=== PATIENT | male | born 1955 | race African-American/Black ===

== ENCOUNTER 2017-07-24 12:44 | Emergency (ER) | payer OTHER, MEDICAID ==
[~2017-07-24] VITALS: Ht 162.6 cm; Wt 59.0 kg
[2017-07-24 15:09] VITALS: BP 123/63
[2017-07-24] MEDS ORDERED: TETANUS-DIPTH-ACEL PERTUSSIS 0.5ML SYRG IM ONE (15:30)
== END 2017-07-24 15:53 | disposition home or self-care (01) ==
LOC: ER 12:44
DX: S01.411A Laceration without foreign body of right cheek and temporomandibular area, initial encounter (principal); Y08.89XA Assault by other specified means, initial encounter; Y93.89 Activity, other specified; Y99.8 Other external cause status; Y92.89 Other specified places as the place of occurrence of the external cause
CPT/HCPCS: 12011; 90471; 90715

== ENCOUNTER 2017-07-31 15:00 | Emergency (ER) | payer OTHER, MEDICAID ==
[~2017-07-31] VITALS: Ht 162.6 cm; Wt 56.7 kg
[2017-07-31 19:06] VITALS: BP 100/64
== END 2017-07-31 19:05 | disposition home or self-care (01) ==
LOC: ER 15:00
DX: S01.411D Laceration without foreign body of right cheek and temporomandibular area, subsequent encounter (principal); Z48.02 Encounter for removal of sutures

== ENCOUNTER 2021-02-26 12:37 | Emergency (ER) | payer MEDICARE, MEDICAID ==
[~2021-02-26] VITALS: Ht 162.6 cm; Wt 59.0 kg
[2021-02-26 12:47] VITALS: BP 131/86
== END 2021-02-26 14:53 | disposition home or self-care (01) ==
LOC: ER 12:37
DX: S39.012A Strain of muscle, fascia and tendon of lower back, initial encounter (principal); S16.1XXA Strain of muscle, fascia and tendon at neck level, initial encounter; V43.52XA Car driver injured in collision with other type car in traffic accident, initial encounter; Y93.89 Activity, other specified; Y92.488 Other paved roadways as the place of occurrence of the external cause; Y99.8 Other external cause status
CPT/HCPCS: 72040; 72100

== ENCOUNTER 2025-11-04 08:27 | Inpatient (IN) | payer OTHER, MEDICAID ==
[~2025-11-04] VITALS: Ht 157.5 cm; Wt 58.4 kg
--- NOTE | 2025-11-04 09:19 | ED.PDOC ---
General HPI Comments A 70 YEAR OLD MALE PRESENTS TO THE ED WITH COMPLAINT OF FLANK PAIN. PATIENT REPORTS THAT HE HAS BEEN EXPERIENCING LEFT SIDED FLANK PAIN WITH ASSOCIATED HEMATURIA AND DYSURIA SINCE THIS MORNING. PATIENT RELAYS THAT HE HAS ALSO BEEN EXPERIENCING WORSENING CHRONIC BACK PAIN, REQUESTING NORCO. PATIENT DENIES FEVER, CHILLS, SHORTNESS OF BREATH, CHEST PAIN, ABDOMINAL PAIN, NAUSEA, VOMITING, HEADACHE, OR OTHER COMPLAINTS. NO OTHER SYMPTOMS OR MODIFYING FACTORS AT THIS TIME. PATIENT IS ALERT, ORIENTED X 4, AND HAS STEADY GAIT. Chief Complaint: Flank Pain Time Seen by MD: 09:17 Primary Care Provider: PARESH Thomas notes: Nurses Notes, Medications, Allergies Allergies: Coded Allergies: NO KNOWN ALLERGIES (Unverified , 07/24/17) Information Source: Patient Mode of Arrival: EMS Severity: Moderate Inability to void: None Timing: Hours Duration: Since onset Prehospital treatment: None Onset: Spontaneous Symptoms: Dysuria, Hematuria History of: None Location: (L)Flank associated signs and symptoms: Flank Pain, Back Pain, Dysuria, Hematuria Past Medical History Past Medical History (Other): CHRONIC BACK PAIN Surgical History: Denies all surgeries Family History Family History: Reviewed,noncontributory to illness Social History Smoker: Non-Smoker, Less Than 1 Pack/Day Alcohol: Denies ETOH Use, Occasionally Drugs: Denies Drug Use Lives In: Home Constitutional: denies: chills, diaphoresis, fatigue, fever, malaise, sweats, weakness, others EENTM: denies: blurred vision, double vision, ear bleeding, ear discharge, ear drainage, ear pain, ear ringing, eye pain, eye redness, hearing loss, mouth pain, mouth swelling, nasal discharge, nose bleeding, nose congestion, nose pain, photophobia, tearing, throat pain, throat swelling, voice changes, others Respiratory: denies: cough, hemoptysis, orthopnea, SOB at rest, shortness of breath, SOB with excertion, stridor, wheezing, others Cardiovascular: denies: chest pain, dizzy spells, diaphoresis, Dyspnea on exert ion, edema, irregular heart beat, left arm pain, lightheadedness, palpitations, PND, syncope, others Gastrointestinal: denies: abdomen distended, abdominal pain, blood streaked bowels, constipated, diarrhea, dysphagia, difficulty swallowing, hematemesis, melena, nausea, poor appetite, poor fluid intake, rectal bleeding, rectal pain, vomiting, others Genitourinary: reports: dysuria, flank pain, hematuria; denies: burning, frequency, incontinence, penile discharge, penile sore, pain, testicle pain, testicle swelling, urgency, others Neurological: denies: dizziness, fainting, headache, left sided numbness, left sided weakness, numbness, paresthesia, pre-existing deficit, right sided numbness, right sided weakness, seizure, speech problems, tingling, tremors, w eakness, others Musculoskeletal: reports: back pain, muscle pain; denies: gout, joint pain, joint swelling, muscle stiffness, neck pain, others Integumetry: denies: bruises, change in color, change in hair/nails, dryness, laceration, lesions, lumps, rash, wounds, others Allergic/Immunocompromised: denies: Difficulty Healing, Frequent Infections, Hives, Itching, others Hematologic/Lymphatic: denies: anemia, blood clots, easy bleeding, easy bruising, swollen glands, others Endocrine: denies: excessive hunger, excessive sweating, excessive thirst, excessive urination, flushing, intolerance to cold, intolerance to heat, unexplained weight gain, unexplained weight loss, others Psychiatric: denies: anxiety, bipolar disorder, depression, hopeless, panic disorder, schizophrenia, sleepless, suicidal, others All Other Systems: Reviewed and Negative Physical Exam General Appearance: No Apparent Distress, Normal HEENT: Normal ENT Inspection, PERRL/EOMI Neck: Full Range of Motion, Non-Tender, Normal, Normal Inspection Respiratory: Chest Non-Tender, Lungs Clear, No Accessory Muscle Use, No Respiratory Distress, Normal Breath Sounds Cardiovascular: No Edema, No JVD, No Murmur, No Gallop, Normal Peripheral Pulses, Regular Rate/Rhythm Breast Exam: Deferred Gastrointestinal: No Organomegaly, No Pulsatile Mass, Normal Bowel Sounds, Soft, Tenderness (LEFT FLANK, NO CVA TENDERNESS. ) Genitalia: Deferred Pelvic: Deferred Rectal: Deferred Extremities: No calf tenderness, Normal capillary refill, Normal inspection, Normal range of motion, Non-tender, No pedal edema Musculoskeletal : Location: Bilateral Extremity Location: Back Apperance: Tenderness: Moderate (TENDERNESS AND MUSCLE SPASM ON LOWER BACK, NO BONY TENDERNESS, SWELLING AND DEFORMITY. ) Neurologic: Alert, computer meteorologist II-XII nml as Tested, No Motor Deficits, Normal Affect, Normal Mood, No Sensory Deficits Cerebellar Function: Normal Reflexes: Normal Skin: Dry, Normal Color, Warm Peripheral Pulses: 2+ carotid (R), 2+ carotid (L) Lymphatic: No Adenopathy Was a procedure done? Was a procedure done?: No Differential Diagnosis Kidney stone (Female): N/A Kidney stone (Male): Pyelonephritis, Urolithiasis, Urinary tract infection Urinary Problem (Male): Urolithiasis, UTI X-Ray, Labs, Meds, VS Vital Signs Date Time Temp Pulse Resp B/P (MAP) Pulse Ox O2 Delivery O2 Flow Rate FiO2 11/04/25 10:51 87 15 97/60 (72) 95 11/04/25 08:32 98.6 92 16 114/73 96 98.6 Lab Test 11/04/25 09:41 11/04/25 09:35 Range/Units Urine Color Light-orange Yellow Urine Clarity Turbid H Clear Urine pH 8.0 5.0-9.0 Urine Specific [place] 1.019 1.001-1.035 Urine Protein Trace H Negative Urine Ketones Negative Negative Urine Blood 2+ H Negative /uL Urine Nitrite 2+ H Negative Urine Bilirubin Negative Negative Urine Urobilinogen 2 H Negative mg/dL Urine Leukocyte Esterase 3+ Negative /uL Urine RBC 78 0 - 3 /hpf Urine Microscopic WBC 112 H 0-3 /HPF Urine Squamous Epithelial Cells Few <5 /hpf Urine Bacteria Few H None Seen /hpf Urine Mucus Few None Seen Urine Glucose Normal Normal mg/dL White Blood Count 22.4 H 4.4-10.8 10^3/uL Red Blood Count 3.95 L 4.5-5.90 10^6/uL Hemoglobin 12.7 L 13.5-17.5 g/dL Hematocrit 38.4 L 41.0-53.0 % Mean Corpuscular Volume 97.3 80.0-100.0 fL Mean Corpuscular Hemoglobin 32.1 H 28.0-32.0 pg Mean Corpuscular Hemoglobin Concent 33.0 32.0-36.0 g/dL Red Cell Distribution Width 13.2 11.8-14.3 % Platelet Count 255 140-450 10^3/uL Mean Platelet Volume 7.8 6.9-10.8 fL Neutrophils (%) (Auto) 90.0 H 37.0-80.0 % Lymphocytes (%) (Auto) 2.0 L 10.0-50.0 % Monocytes (%) (Auto) 7.7 0.0-12.0 % Eosinophils (%) (Auto) 0.1 0.0-7.0 % Basophils (%) (Auto) 0.2 0.0-2.0 % Neutrophils # (Auto) 20.1 H 1.6-8.6 10 ^3/uL Lymphocytes # (Auto) 0.5 0.4-5.4 10 ^3/uL Monocytes # (Auto) 1.7 H 0-1.3 10 ^3/uL Eosinophils # (Auto) 0 0-0.8 10 ^3/uL Basophils # (Auto) 0.1 0-0.2 10 ^3/uL Nucleated Red Blood Cells 0.0 % Sodium Level 136 136-145 mmol/L Potassium Level 4.0 3.5-5.1 mmol/L Chloride Level 101 98-107 mmol/L Carbon Dioxide Level 26 20-31 mmol/L Anion Gap 9 5-15 Blood Urea Nitrogen 15 9-23 mg/dL Creatinine 1.43 H 0.700-1.30 mg/dL Glomerular Filtration Rate Calc 53 >90 mL/min BUN/Creatinine Ratio 10.5 10.0-20.0 Serum Glucose 94 74-106 mg/dL Calcium Level 8.5 L 8.7-10.4 mg/dL Current Medications Medications (Trade) Dose Ordered Sig/Kamila Route Start Time Stop Time Status Last Admin Acetaminophen/ Hydrocodone Bitart ([place] 10/325MG Tab) 1 tab ONCE ONCE PO 11/04/25 09:30 11/04/25 09:31 CA 11/04/25 09:40 Sodium Chloride 1,000 ml @ 1,000 mls/hr Q1H ONCE IV 11/04/25 10:30 11/04/25 11:29 DC 11/04/25 10:50 Ceftriaxone Sodium 50 ml @ 100 mls/hr ONCE ONCE IV 11/04/25 10:30 11/04/25 10:59 CA 11/04/25 11:08 Tamsulosin HCl (Flomax) 0.8 mg ONCE ONCE PO 11/04/25 11:00 11/04/25 11:01 CA 11/04/25 11:02 [facility] [id number] [facility] [address] Ph: [phone] DIAGNOSTIC IMAGING Diagnostic Imaging Report : [id number] Signed PATIENT: BEVERLEY YODER ACCT: [id number] UNIT: [id number] : 1955 LOC: ER ROOM / BED: / AGE / SEX: 70 / M ADM STATUS: REG ER SERVICE 9 ORDERING PHYSICIAN: CECILIA RILEY PROCEDURE(s): ABPL - CT AB PEL WO CON-NO ORAL OR IV REASON: LOW Back with hematoma ORDER NUMBER(s): [id number], ACCESSION NUMBER(s): [id number] EXAM: CT CT AB PEL WO CON-NO ORAL OR IV HISTORY: LOW Back with hematoma Comparison Study: None Exam Date: 11/04/2025 09:26 AM Radiation Dose Information: CT Dose: CTDI volume is 5.07 mGy. Dose-length product is 259.72 mGy*cm TECHNIQUE: Multidetector CT of the abdomen and pelvis was performed. Imaging was performed without IV contrast. Axial, coronal and sagittal multiplanar reformats were obtained from the axial data set by the technologist. FINDINGS: Lack of intravenous contrast compromises evaluation of perfusion and for isodense lesions. Lower chest: Clear. Old right rib fractures. Liver: Unremarkable Biliary system: Unremarkable Spleen: Unremarkable Pancreas: Unremarkable. Adrenals: Unremarkable. Kidneys and ureters: No hydronephrosis. No renal or ureteral calculi. Bowel: No obstruction. Mild distal esophageal wall thickening. Bladder: Diffuse bladder wall thickening. Multiple calculi within the bladder measuring up to 12 mm. Reproductive organs: No abnormal mass. Lymph nodes: Unremarkable. Peritoneum: Unremarkable Vessels: Patency not evaluated on this noncontrast study. Bones and soft tissue: No aggressive osseous lesion. Multilevel degenerative changes of the lumbar spine. IMPRESSION: Motion degraded study. Diffuse bladder wall thickening. Correlate for cystitis. Multiple calculi within the bladder measuring up to 12 mm. Mild esophageal wall thickening could be related to distal esophagitis. Consider outpatient endoscopy if there is concern for underlying mass ATED BY: ROGERS HINTON MD DICTATED DATE/TIME: 11/04/25956 SIGNED BY: ROGERS HINTON MD SIGNED DATE/TIME: 11/04/25956 CC: X-Ray, Labs, Meds, VS Comment EXTERNAL MEDICAL RECORDS REVIEWED: [NONE] INDEPENDENT HISTORIANS: [NONE] SOCIAL DETERMINANTS OF HEALTH: [NONE] LABS ORDERED: CBC, BMP, UA REVIEWED AND INTERPRETED RESULTS: CT ABD/PEL IMAGING ORDERED: CT ABD/PEL TREATMENTS ORDERED: NORCO 10/325MG PO, ROCEPHIN 1GM IVP, FLOMAX 0.8MG PO AND N/S 1LITER IVP PROCEDURES PERFORMED: NONE CRITICAL CARE TIME: NONE I HAVE DISCUSSED THE PATIENT WITH THE ATTENDING PHYSICIAN DR. LARA AND HE AGREES WITH THE PATIENT'S PLAN OF CARE AND DISPOSITION. BASED ON HISTORY OF PRESENT ILLNESS, AND PHYSICAL EXAM, PATIENT WILL BE ADMITTED TO THE HOSPITAL FOR FURTHER IN-PATIENT EVALUATION AND TREATMENT. 1155: DISCUSSED PATIENT CASE WITH DR. ROSADO AND HE AGREES TO ADMIT THE PATIENT TO THE HOSPITAL AT THIS TIME. Time of 1ST Reevaluation: 10:16 Reevaluation 1ST: Unchanged Patient Education/Counseling: Diagnosis, Treatment Family Education/Counseling: Diagnosis, Treatment, No Family Present SEPSIS Sepsis Screen Date sepsis recognized/suspect: Nov 04, 2025 Time Sepsis recognized/suspect: 08 Recent Procedure: No On Antibiotic Therapy: No Respiratory Rate >20: No Heart Rate >90: Yes Temp<36 C (96.8 F) or >38.3 C: No SBP <90 or MAP <65 mmHG: No New Acute Mental Status Change: No Is the patient on CPAP, BIPAP,: No Physician Orders Ct Ab Pel Wo Con-No Oral Or Iv (11/04/25 09:20) Heplock Iv (11/04/25 ) Urine Bacterial Culture (11/04/25 10:19) Admit (11/04/25 12:35) Code Status (11/04/25 12:35) 2 Gm Sodium Diet (11/04/25 Lunch) Sodium Chloride 0.9% (11/04/25 12:45) Hydrocodone-Acet 5/325mg Tab ([place] 5/32 (11/04/25 12:45) Ondansetron Hcl (Zofran) (11/04/25 12:45) Docusate Sodium Capsule (Colace Capsule) (11/04/25 12:45) Fall Risk Precautions In Place QSHIFT (11/04/25 12:35) Complete Blood Count (11/05/25 04:00) Comprehensive Metabolic Panel (11/05/25 04:00) Condition: Fair (11/04/25 12:35) Enoxaparin Sodium (Lovenox) (11/05/25 10:00) Acetaminophen Tablet (Tylenol Tablet) (11/04/25 12:45) Morphine Sulfate Injection (11/04/25 12:45) Ceftriaxone 1gm/50ml (Rocephin) (11/05/25 09:00) * Urology Consult (11/04/25 12:38) Vital Signs Date Time Temp Pulse Resp B/P (MAP) Pulse Ox O2 Delivery O2 Flow Rate FiO2 11/04/25 10:51 87 15 97/60 (72) 95 11/04/25 08:32 98.6 92 16 114/73 96 98.6 Laboratory Tests Test 11/04/25 09:35 White Blood Count 22.4 10^3/uL (4.4-10.8) H Medications Medications Dose Ordered Sig/Kamila Route Start Time Stop Time Status Last Admin Dose Admin Acetaminophen/ Hydrocodone Bitart 1 tab ONCE ONCE PO 11/04/25 09:30 11/04/25 09:31 DC 11/04/25 09:40 Ceftriaxone Sodium 50 ml @ 100 mls/hr ONCE ONCE IV 11/04/25 10:30 11/04/25 10:59 DC 11/04/25 11:08 Sodium Chloride 1,000 ml @ 1,000 mls/hr Q1H ONCE IV 11/04/25 10:30 11/04/25 11:29 DC 11/04/25 10:50 Tamsulosin HCl 0.8 mg ONCE ONCE PO 11/04/25 11:00 11/04/25 11:01 DC 11/04/25 11:02 Departure 1 Departure Time of Disposition: 10:20 Impression: Primary Impression: Bladder stone Additional Impressions: UTI (urinary tract infection) Qualified Codes: N39.0 - Urinary tract infection, site not specified; R31.9 - Hematuria, unspecified Hematuria Qualified Codes: R31.9 - Hematuria, unspecified Disposition: 09 ADMITTED INPATIENT Condition: Serious Critical Care Note Critical Care Time?: No Stability Stability form required: No Heart Score Heart Score: Heart Score Response (Comments) Value History N/A 0 EKG N/A 0 Age N/A 0 Risk Factors N/A 0 Troponin N/A 0 Total 0 I personally scribed for CECILIA RILEY ([email or web address]) on 11/04/25 at 09:19. Electronically submitted by Chay Roman ([email or web address]). I personally scribed for CECILIA RILEY ([email or web address]) on 11/04/25 at 10:07. Electronically submitted by Chay Roman ([email or web address]). I personally scribed for CECILIA RILEY ([email or web address]) on 11/04/25 at 10:21. Electronically submitted by Chay Roman ([email or web address]). I personally scribed for CECILIA RILEY ([email or web address]) on 11/04/25 at 11:58. Electronically submitted by Chay Roman ([email or web address]). CECILIA RILEY Nov 04, 2025 09:19
[2025-11-04] MEDS: HYDROcodone-ACET 10/325MG TAB PO ONE (09:40)
--- NOTE | 2025-11-04 09:59 | DVH ---
EXAM: CT CT AB PEL WO CON-NO ORAL OR IV HISTORY: LOW Back with hematoma Comparison Study: None Exam Date: 11/04/2025 09:26 AM Radiation Dose Information: CT Dose: CTDI volume is 5.07 mGy. Dose-length product is 259.72 mGy*cm TECHNIQUE: Multidetector CT of the abdomen and pelvis was performed. Imaging was performed without IV contrast. Axial, coronal and sagittal multiplanar reformats were obtained from the axial data set by the technologist. FINDINGS: Lack of intravenous contrast compromises evaluation of perfusion and for isodense lesions. Lower chest: Clear. Old right rib fractures. Liver: Unremarkable Biliary system: Unremarkable Spleen: Unremarkable Pancreas: Unremarkable. Adrenals: Unremarkable. Kidneys and ureters: No hydronephrosis. No renal or ureteral calculi. Bowel: No obstruction. Mild distal esophageal wall thickening. Bladder: Diffuse bladder wall thickening. Multiple calculi within the bladder measuring up to 12 mm. Reproductive organs: No abnormal mass. Lymph nodes: Unremarkable. Peritoneum: Unremarkable Vessels: Patency not evaluated on this noncontrast study. Bones and soft tissue: No aggressive osseous lesion. Multilevel degenerative changes of the lumbar spine. IMPRESSION: Motion degraded study. Diffuse bladder wall thickening. Correlate for cystitis. Multiple calculi within the bladder measuring up to 12 mm. Mild esophageal wall thickening could be related to distal esophagitis. Consider outpatient endoscopy if there is concern for underlying mass
[2025-11-04 10:02] LABS: Urine Protein, UAD TRACE (Negative)
[2025-11-04 10:08] LABS: Hematocrit 38.4 % (41.0-53.0); Hemoglobin 12.7 g/dL (13.5-17.5); Mean Corpuscular Hemoglobin 32.1 pg (28.0-32.0); Mean Corpuscular Volume 97.3 fL (80.0-100.0); Nucleated Red Blood Cells % 0.0 %
[2025-11-04 10:22] LABS: Anion Gap 9 (5-15); Carbon Dioxide 26 mmol/L (20-31); Chloride 101 mmol/L (98-107); Potassium 4.0 mmol/L (3.5-5.1); Sodium 136 mmol/L (136-145)
[2025-11-04 10:24] LABS: Calcium 8.5 mg/dL (8.7-10.4)
[2025-11-04 10:28] LABS: BUN/Creatinine Ratio 10.5 (10.0-20.0); Blood Urea Nitrogen 15 mg/dL (9-23); Glucose 94 mg/dL (74-106)
[2025-11-04] MEDS: SODIUM CHLORIDE 0.9% 1,000 ML IV ONE (10:50)
[2025-11-04] MEDS: TAMSULOSIN HYDROCHLORIDE 0.4 MG CAP PO ONE (11:02)
[2025-11-04] MEDS ORDERED: ONDANSETRON HCL 4 MG/2 ML VIAL IV PRN (12:45)
[2025-11-04] MEDS ORDERED: ACETAMINOPHEN 325 MG TAB PO PRN (12:45)
[2025-11-04] MEDS ORDERED: DOCUSATE SOD 100 MG CAP PO PRN (12:45)
[2025-11-04 13:21] VITALS: PULSE 81; RESP 20; O2SAT 96
[2025-11-04] MEDS: HYDROcodone-ACET 5/325MG TAB PO PRN (13:42)
--- NOTE | 2025-11-04 13:54 | DVHHP2 ---
History of Present Illness Reason for Visit: Blood in the urine and left flank pain History of Present Illness 70-year-old male with a known history of chronic back pain currently on narcotics presented to the hospital with a left flank pain and gross blood in the urine found to have urinary bladder stone. Patient denies any fevers chills but does complaining of dysuria hematuria. CT abdomen and pelvis was done which shows evidence of urinary bladder stone and urinary bladder wall thickening as well as esophageal wall thickening. Musculoskeletal: Chronic low back pain Renal/: Acute renal failure, Hematuria Past Surgical History: None Family History: None Smoke: No ALCOHOL: none Review of Systems Review of Systems Twelve review of system are negative besides mentioned above. 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 Labs/Xrays Labs Test 11/04/25 09:41 11/04/25 09:35 Range/Units Urine Color Light-orange Yellow Urine Clarity Turbid H Clear Urine pH 8.0 5.0-9.0 Urine Specific [place] 1.019 1.001-1.035 Urine Protein Trace H Negative Urine Ketones Negative Negative Urine Blood 2+ H Negative /uL Urine Nitrite 2+ H Negative Urine Bilirubin Negative Negative Urine Urobilinogen 2 H Negative mg/dL Urine Leukocyte Esterase 3+ Negative /uL Urine RBC 78 0 - 3 /hpf Urine Microscopic WBC 112 H 0-3 /HPF Urine Squamous Epithelial Cells Few <5 /hpf Urine Bacteria Few H None Seen /hpf Urine Mucus Few None Seen Urine Glucose Normal Normal mg/dL White Blood Count 22.4 H 4.4-10.8 10^3/uL Red Blood Count 3.95 L 4.5-5.90 10^6/uL Hemoglobin 12.7 L 13.5-17.5 g/dL Hematocrit 38.4 L 41.0-53.0 % Mean Corpuscular Volume 97.3 80.0-100.0 fL Mean Corpuscular Hemoglobin 32.1 H 28.0-32.0 pg Mean Corpuscular Hemoglobin Concent 33.0 32.0-36.0 g/dL Red Cell Distribution Width 13.2 11.8-14.3 % Platelet Count 255 140-450 10^3/uL Mean Platelet Volume 7.8 6.9-10.8 fL Neutrophils (%) (Auto) 90.0 H 37.0-80.0 % Lymphocytes (%) (Auto) 2.0 L 10.0-50.0 % Monocytes (%) (Auto) 7.7 0.0-12.0 % Eosinophils (%) (Auto) 0.1 0.0-7.0 % Basophils (%) (Auto) 0.2 0.0-2.0 % Neutrophils # (Auto) 20.1 H 1.6-8.6 10 ^3/uL Lymphocytes # (Auto) 0.5 0.4-5.4 10 ^3/uL Monocytes # (Auto) 1.7 H 0-1.3 10 ^3/uL Eosinophils # (Auto) 0 0-0.8 10 ^3/uL Basophils # (Auto) 0.1 0-0.2 10 ^3/uL Nucleated Red Blood Cells 0.0 % Sodium Level 136 136-145 mmol/L Potassium Level 4.0 3.5-5.1 mmol/L Chloride Level 101 98-107 mmol/L Carbon Dioxide Level 26 20-31 mmol/L Anion Gap 9 5-15 Blood Urea Nitrogen 15 9-23 mg/dL Creatinine 1.43 H 0.700-1.30 mg/dL Glomerular Filtration Rate Calc 53 >90 mL/min BUN/Creatinine Ratio 10.5 10.0-20.0 Serum Glucose 94 74-106 mg/dL Calcium Level 8.5 L 8.7-10.4 mg/dL SEPSIS Sepsis Screen Date sepsis recognized/suspect: Nov 04, 2025 Time Sepsis recognized/suspect: 0832 Recent Procedure: No On Antibiotic Therapy: No Respiratory Rate >20: No Heart Rate >90: Yes Temp<36 C (96.8 F) or >38.3 C: No SBP <90 or MAP <65 mmHG: No New Acute Mental Status Change: No Is the patient on CPAP, BIPAP,: No Physician Orders Ct Ab Pel Wo Con-No Oral Or Iv (11/04/25 09:20) Heplock Iv (11/04/25 ) Urine Bacterial Culture (11/04/25 10:19) Admit (11/04/25 12:35) Code Status (11/04/25 12:35) 2 Gm Sodium Diet (11/04/25 Lunch) Sodium Chloride 0.9% (11/04/25 12:45) Hydrocodone-Acet 5/325mg Tab ([place] 5/32 (11/04/25 12:45) Ondansetron Hcl (Zofran) (11/04/25 12:45) Docusate Sodium Capsule (Colace Capsule) (11/04/25 12:45) Fall Risk Precautions In Place QSHIFT (11/04/25 12:35) Complete Blood Count (11/05/25 04:00) Comprehensive Metabolic Panel (11/05/25 04:00) Condition: Fair (11/04/25 12:35) Enoxaparin Sodium (Lovenox) (11/05/25 10:00) Acetaminophen Tablet (Tylenol Tablet) (11/04/25 12:45) Ceftriaxone 1gm/50ml (Rocephin) (11/05/25 09:00) * Urology Consult (11/04/25 12:38) Morphine Sulfate Injection (11/04/25 13:30) Vital Signs Date Time Temp Pulse Resp B/P (MAP) Pulse Ox O2 Delivery O2 Flow Rate FiO2 11/04/25 10:51 87 15 97/60 (72) 95 11/04/25 08:32 98.6 92 16 114/73 96 98.6 Laboratory Tests Test 11/04/25 09:35 White Blood Count 22.4 10^3/uL (4.4-10.8) H Medications Medications Dose Ordered Sig/Kamila Route Start Time Stop Time Status Last Admin Dose Admin Acetaminophen/ Hydrocodone Bitart 1 tab ONCE ONCE PO 11/04/25 09:30 11/04/25 09:31 DC 11/04/25 09:40 1 TAB Ceftriaxone Sodium 50 ml @ 100 mls/hr ONCE ONCE IV 11/04/25 10:30 11/04/25 10:59 DC 11/04/25 11:08 100 MLS/HR Sodium Chloride 1,000 ml @ 1,000 mls/hr Q1H ONCE IV 11/04/25 10:30 11/04/25 11:29 DC 11/04/25 10:50 1,000 MLS/HR Tamsulosin HCl 0.8 mg ONCE ONCE PO 11/04/25 11:00 11/04/25 11:01 DC 11/04/25 11:02 0.8 MG Assessment/Plan Assessment/Plan 70-year-old male with a known history of chronic back pain, chronic narcotic dependency presented to the hospital with left flank pain and blood in the urine as well as dysuria found to have 1. Gross hematuria 2. Urinary bladder stone 3. Acute cystitis with hematuria 4. Leukocytosis rule out sepsis 5. Acute on chronic back pain 6. Esophageal wall thickening, outpatient follow up with the GI for endoscopy 7. Acute kidney injury suspected secondary to vasomotor nephropathy -IV antibiotics, IV hydration, Urology consultation, follow up cultures. Plan discussed with: Patient My Orders Orders - DAVE ROSADO MD Procedure Category Date Status Time Admit ADMIT 11/04/25 Transmitted 12:35 Code Status CODE 11/04/25 Transmitted 12:35 2 Gm Sodium Diet DIET 11/04/25 Transmitted Lunch Sodium Chloride 0.9% PHA 11/04/25 In Process 12:45 Hydrocodone-Acet PHA 11/04/25 In Process 5/325mg Tab (Ideal 12:45 Ondansetron Hcl PHA 11/04/25 In Process (Zofran) 12:45 Docusate Sodium PHA 11/04/25 In Process Capsule (Colace 12:45 Fall Risk Precautions CHRIS 11/04/[address] 12:35 Complete Blood Count LAB 11/05/25 Verified 04:00 Comprehensive LAB 11/05/25 Verified Metabolic Panel 04:00 Condition: Fair CHRIS 11/04/25 In Process 12:35 Enoxaparin Sodium PHA 11/05/25 In Process (Lovenox) 10:00 Acetaminophen Tablet PHA 11/04/25 In Process (Tylenol Tablet) 12:45 Ceftriaxone 1gm/50ml PHA 11/05/25 In Process (Rocephin) 09:00 * Urology Consult CONS 11/04/25 Transmitted 12:38 Morphine Sulfate PHA 11/04/25 In Process Injection 13:30 Problem List: (1) Low back strain (2) UTI (urinary tract infection) (3) Hematuria (4) Bladder stone Date of Service: Nov 04, 2025 Billing Provider: DAVE ROSADO MD Common Visit Codes: NOT BILLABLE DAVE ROSADO MD Nov 04, 2025 13:54
[2025-11-04] MEDS: SODIUM CHLORIDE 0.9% 1,000 ML IV SCH (14:24)
[2025-11-04 15:25] VITALS: BP 100/54; PULSE 76; RESP 18; TEMP 98.1; O2SAT 99
[2025-11-04 16:37] VITALS: BP 100/54; PULSE 81; RESP 18; TEMP 98.4; O2SAT 98
[2025-11-04 21:00] VITALS: BP 100/68; PULSE 93; RESP 16; TEMP 98.4; O2SAT 96
[2025-11-05 01:00] VITALS: BP 121/74; PULSE 78; RESP 18; TEMP 97.6; O2SAT 99
[2025-11-05 05:00] VITALS: BP 110/70; PULSE 98; RESP 18; TEMP 98.9; O2SAT 96
[2025-11-05] MEDS: MORPHINE SULFATE 4 MG/ML SYR/VIAL IV PRN (05:25)
[2025-11-05 06:08] LABS: Hematocrit 33.9 % (41.0-53.0); Hemoglobin 11.6 g/dL (13.5-17.5); Mean Corpuscular Hemoglobin 33.4 pg (28.0-32.0); Mean Corpuscular Volume 97.8 fL (80.0-100.0); Nucleated Red Blood Cells % 0.0 %
[2025-11-05 06:35] LABS: Alkaline Phosphatase 96 U/L (46-116); Anion Gap 8 (5-15); BUN/Creatinine Ratio 15.9 (10.0-20.0); Blood Urea Nitrogen 14 mg/dL (9-23); Carbon Dioxide 23 mmol/L (20-31); Glucose 75 mg/dL (74-106); Potassium 3.8 mmol/L (3.5-5.1); Sodium 139 mmol/L (136-145); Total Protein 6.2 g/dL (5.7-8.2)
[2025-11-05 06:36] LABS: Alanine Aminotransferase 84 U/L (7-40); Albumin 2.7 g/dL (3.2-4.8); Bilirubin, Total 0.3 mg/dL (0.2-1.0); Calcium 7.9 mg/dL (8.7-10.4); Chloride 108 mmol/L (98-107)
[2025-11-05 08:00] VITALS: PULSE 89; RESP 18; O2SAT 98
[2025-11-05 08:30] VITALS: BP 117/86; PULSE 89; RESP 18; TEMP 98.6; O2SAT 98
[2025-11-05] MEDS: ENOXAPARIN SOD 30 MG/0.3 ML SYRINGE SC SCH (10:27)
--- NOTE | 2025-11-05 12:13 | DVHINCON2 ---
Date of service: Nov 05, 2025 Referring Physician Laura Reason for Consultation bladder stones with hematuria History of Present Illness History Source: Patient, RN Notes, MD Notes Exam Limitations: No limitations HPI 70 yo male admitted for gross hematuria found to have multiple bladder stones. H&P Exam Vital Signs Vital Signs Date Time Temp Pulse Resp B/P (MAP) Pulse Ox O2 Delivery O2 Flow Rate FiO2 11/05/25 08:30 98.6 89 18 117/86 (96) 98 98.6 11/04/25 20:00 Room Air* 0 21 Labs/Xrays Labs Test 11/05/25 04:55 11/04/25 09:41 Range/Units White Blood Count 14.7 #H 4.4-10.8 10^3/uL Red Blood Count 3.46 L 4.5-5.90 10^6/uL Hemoglobin 11.6 L 13.5-17.5 g/dL Hematocrit 33.9 #L 41.0-53.0 % Mean Corpuscular Volume 97.8 80.0-100.0 fL Mean Corpuscular Hemoglobin 33.4 H 28.0-32.0 pg Mean Corpuscular Hemoglobin Concent 34.2 32.0-36.0 g/dL Red Cell Distribution Width 13.4 11.8-14.3 % Platelet Count 235 140-450 10^3/uL Mean Platelet Volume 7.9 6.9-10.8 fL Neutrophils (%) (Auto) 81.7 H 37.0-80.0 % Lymphocytes (%) (Auto) 8.3 L 10.0-50.0 % Monocytes (%) (Auto) 9.2 0.0-12.0 % Eosinophils (%) (Auto) 0.7 0.0-7.0 % Basophils (%) (Auto) 0.1 0.0-2.0 % Neutrophils # (Auto) 12.0 H 1.6-8.6 10 ^3/uL Lymphocytes # (Auto) 1.2 0.4-5.4 10 ^3/uL Monocytes # (Auto) 1.4 H 0-1.3 10 ^3/uL Eosinophils # (Auto) 0.1 0-0.8 10 ^3/uL Basophils # (Auto) 0 0-0.2 10 ^3/uL Nucleated Red Blood Cells 0.0 % Sodium Level 139 136-145 mmol/L Potassium Level 3.8 3.5-5.1 mmol/L Chloride Level 108 H 98-107 mmol/L Carbon Dioxide Level 23 20-31 mmol/L Anion Gap 8 5-15 Blood Urea Nitrogen 14 9-23 mg/dL Creatinine 0.88 0.700-1.30 mg/dL Glomerular Filtration Rate Calc 93 >90 mL/min BUN/Creatinine Ratio 15.9 10.0-20.0 Serum Glucose 75 74-106 mg/dL Calcium Level 7.9 L 8.7-10.4 mg/dL Total Bilirubin 0.3 0.2-1.0 mg/dL Aspartate Amino Transferase (AST) 77 H 13-40 U/L Alanine Aminotransferase (ALT) 84 H 7-40 U/L Alkaline Phosphatase 96 46-116 U/L Total Protein 6.2 5.7-8.2 g/dL Albumin 2.7 L 3.2-4.8 g/dL Urine Color Light-orange Yellow Urine Clarity Turbid H Clear Urine pH 8.0 5.0-9.0 Urine Specific [place] 1.019 1.001-1.035 Urine Protein Trace H Negative Urine Ketones Negative Negative Urine Blood 2+ H Negative /uL Urine Nitrite 2+ H Negative Urine Bilirubin Negative Negative Urine Urobilinogen 2 H Negative mg/dL Urine Leukocyte Esterase 3+ Negative /uL Urine RBC 78 0 - 3 /hpf Urine Microscopic WBC 112 H 0-3 /HPF Urine Squamous Epithelial Cells Few <5 /hpf Urine Bacteria Few H None Seen /hpf Urine Mucus Few None Seen Urine Glucose Normal Normal mg/dL Microbiology Date/Time Source Procedure Growth Status 11/04/25 09:41 Voided Urine Urine Culture - Preliminary Resulted Assessment/Plan Problem List: (1) Bladder stone (2) Hematuria (3) UTI (urinary tract infection) Plan discussed with: Patient, Other CYN PIERSON NP Nov 05, 2025 12:13
[2025-11-05 13:30] VITALS: BP 132/86; PULSE 86; RESP 20; TEMP 98.2; O2SAT 98
[2025-11-05] MEDS ORDERED: CEFD300C2 PO (13:59)
--- NOTE | 2025-11-05 14:08 | DVHDS2 ---
Discharge Summary Date of Admission Nov 04, 2025 at 12:35 Date of Discharge: Nov 05, 2025 Labs/Diagnostic Data: Laboratory Results Test 11/05/25 04:55 11/04/25 09:41 White Blood Count 14.7 10^3/uL (4.4-10.8) Red Blood Count 3.46 10^6/uL (4.5-5.90) Hemoglobin 11.6 g/dL (13.5-17.5) Hematocrit 33.9 % (41.0-53.0) Mean Corpuscular Volume 97.8 fL (80.0-100.0) Mean Corpuscular Hemoglobin 33.4 pg (28.0-32.0) Mean Corpuscular Hemoglobin Concent 34.2 g/dL (32.0-36.0) Red Cell Distribution Width 13.4 % (11.8-14.3) Platelet Count 235 10^3/uL (140-450) Mean Platelet Volume 7.9 fL (6.9-10.8) Neutrophils (%) (Auto) 81.7 % (37.0-80.0) Lymphocytes (%) (Auto) 8.3 % (10.0-50.0) Monocytes (%) (Auto) 9.2 % (0.0-12.0) Eosinophils (%) (Auto) 0.7 % (0.0-7.0) Basophils (%) (Auto) 0.1 % (0.0-2.0) Neutrophils # (Auto) 12.0 10 ^3/uL (1.6-8.6) Lymphocytes # (Auto) 1.2 10 ^3/uL (0.4-5.4) Monocytes # (Auto) 1.4 10 ^3/uL (0-1.3) Eosinophils # (Auto) 0.1 10 ^3/uL (0-0.8) Basophils # (Auto) 0 10 ^3/uL (0-0.2) Nucleated Red Blood Cells 0.0 % Sodium Level 139 mmol/L (136-145) Potassium Level 3.8 mmol/L (3.5-5.1) Chloride Level 108 mmol/L (98-107) Carbon Dioxide Level 23 mmol/L (20-31) Anion Gap 8 (5-15) Blood Urea Nitrogen 14 mg/dL (9-23) Creatinine 0.88 mg/dL (0.700-1.30) Glomerular Filtration Rate Calc 93 mL/min (>90) BUN/Creatinine Ratio 15.9 (10.0-20.0) Serum Glucose 75 mg/dL (74-106) Calcium Level 7.9 mg/dL (8.7-10.4) Total Bilirubin 0.3 mg/dL (0.2-1.0) Aspartate Amino Transferase (AST) 77 U/L (13-40) Alanine Aminotransferase (ALT) 84 U/L (7-40) Alkaline Phosphatase 96 U/L (46-116) Total Protein 6.2 g/dL (5.7-8.2) Albumin 2.7 g/dL (3.2-4.8) Urine Color Light-orange (Yellow) Urine Clarity Turbid (Clear) Urine pH 8.0 (5.0-9.0) Urine Specific [place] 1.019 (1.001-1.035) Urine Protein Trace (Negative) Urine Ketones Negative (Negative) Urine Blood 2+ /uL (Negative) Urine Nitrite 2+ (Negative) Urine Bilirubin Negative (Negative) Urine Urobilinogen 2 mg/dL (Negative) Urine Leukocyte Esterase 3+ /uL (Negative) Urine RBC 78 /hpf (0 - 3) Urine Microscopic WBC 112 /HPF (0-3) Urine Squamous Epithelial Cells Few /hpf (<5) Urine Bacteria Few /hpf (None Seen) Urine Mucus Few (None Seen) Urine Glucose Normal mg/dL (Normal) Other Laboratory Tests 11/05/25 04:55 Brief Hx & Hospital Course: 70-year-old male with a known history of chronic back pain, chronic narcotic dependency presented to the hospital with left flank pain and blood in the urine as well as dysuria found to have gross hematuria with a urinary bladder stone. Patient's has a CT scan of the abdomen which shows evidence of urinary bladder stones but no hydronephrosis. Also there was a incidental finding of esophageal wall thickening. Patient was found to have urinary tract infection which was treated with the IV antibiotics. Patient was seen by Urology and currently cleared to be discharged. Patient needs outpatient cystoscopy with the Urology. Also patient needs to see GI as an outpatient for esophageal wall thickening. Patient does have known history of chronic tobacco use disorder, nicotine cessation counseling has been discussed. Condition at Discharge: Stable Final Diagnosis/Problems List 70-year-old male with a known history of chronic back pain, chronic narcotic dependency presented to the hospital with left flank pain and blood in the urine as well as dysuria found to have 1. Gross hematuria secondary to urinary bladder stone, resolved 2. Urinary bladder stone, outpatient cystoscopy 3. Acute cystitis with hematuria 4. Leukocytosis ruled out sepsis 5. Acute on chronic back pain 6. Esophageal wall thickening, outpatient follow up with the GI for endoscopy 7. Acute kidney injury suspected secondary to vasomotor nephropathy -IV antibiotics, IV hydration, Urology consultation, follow up cultures. Discharge Disposition: Home SNF Discharge Will this Physician continue t: No Discharge Instruct/Medications Diet: Cardiac 2g Na,low cholest Activity: No Restrictions, As Tolerated Follow Up/Referral: Please follow up with the PCP in 1-2 weeks Follow up with Urology,Jose Joaquin. Follow up with the GI doctor Shaheen Bryant as an outpatient for esophageal wall thickening to rule out any underlying mass. Medications: Antibiotics as prescribed New Medications: Cefdinir (Cefdinir) 300 Mg Cap 1 CAP PO BID for 5 Days, #10 CAP Scheduled Cefdinir (Cefdinir), 1 CAP PO BID Discharge Statement: "Patient was advised to return to the ER or call 911 if any headaches, dizziness, shortness of breath, chest pain, abdominal pain, bleeding, fevers, or worsening of medical condition. Patient was counseled about treatment plan, medications, possible side effects, patientverbalized understanding. All questions were answered to the best of my ability. This discharge took greater then 30 minutes in planning, reviewing documentation, counseling the patient, and discussing with other team members." ASSESSMENT ASSESSMENT Assessment 70-year-old male with a known history of chronic back pain, chronic narcotic dependency presented to the hospital with left flank pain and blood in the urine as well as dysuria found to have 1. Gross hematuria secondary to urinary bladder stone, resolved 2. Urinary bladder stone, outpatient cystoscopy 3. Acute cystitis with hematuria 4. Leukocytosis ruled out sepsis 5. Acute on chronic back pain 6. Esophageal wall thickening, outpatient follow up with the GI for endoscopy 7. Acute kidney injury suspected secondary to vasomotor nephropathy -IV antibiotics, IV hydration, Urology consultation, follow up cultures. Date of Service: Nov 05, 2025 Billing Provider: DAVE ROSADO MD Common Visit Codes: NOT BILLABLE DAVE ROSADO MD Nov 05, 2025 14:08
[2025-11-05 14:48] VITALS: BP 117/86; PULSE 89; RESP 18; TEMP 98.6; O2SAT 98
== END 2025-11-05 15:19 | disposition home or self-care (01) | DRG 693 ==
LOC: EDBD 08:27 → ER 08:27 → OVERFLOW 12:35 → WEST WING 15:13
PROVIDERS: ADMIT Internal Medicine; ATTEND Internal Medicine
DX: N21.0 Calculus in bladder (principal); N17.0 Acute kidney failure with tubular necrosis; N30.01 Acute cystitis with hematuria; F11.20 Opioid dependence, uncomplicated; M54.9 Dorsalgia, unspecified; G89.29 Other chronic pain; K22.9 Disease of esophagus, unspecified; Z87.891 Personal history of nicotine dependence
CPT/HCPCS: 36415; 74176; 80048; 80053; 81001; 85025; 87086; G0378